=== PATIENT | female | born 1940 | race Caucasian/White ===

== ENCOUNTER 2020-09-21 14:34 | Emergency (ER) | payer OTHER, BC ==
[~2020-09-21] VITALS: Ht 160 cm; Wt 60.3 kg
[2020-09-21] MEDS ORDERED: BENICAR HCT 401 EAC1 PO (14:46)
== END 2020-09-21 18:17 | disposition home or self-care (01) ==
LOC: ER 14:34
DX: G44.89 Other headache syndrome (principal)